=== PATIENT | female | born 1945 | race Caucasian/White ===

== ENCOUNTER → 2017-06-23 | Outpatient (CLI) | payer MEDICARE ==
[~2017-06-23] MED LIST: RALO60 PO
[2017-06-25 12:53] LABS: HPV Genotype 16 Not Detected (NOTDET); HPV Genotype 18 Not Detected (NOTDET)
[2017-07-06 10:35] LABS: HPV High Risk Other Not Detected (NOTDET)
== END | disposition home or self-care (01) ==
LOC: OLS 16:17
PROVIDERS: Obstetrics & Gynecology Gynecology
DX: Z91.89 Other specified personal risk factors, not elsewhere classified (principal)
CPT/HCPCS: 87624; G0123

== ENCOUNTER → 2017-07-22 | Outpatient (CLI) | payer MEDICARE | END | disposition home or self-care (01) | LOC: OLS 16:25 → LAB SHORT 16:25 | DX: L98.8 Other specified disorders of the skin and subcutaneous tissue (principal) | CPT/HCPCS: 87529 ==

== ENCOUNTER → 2018-07-14 | Outpatient (CLI) | payer MEDICARE | END | disposition home or self-care (01) | LOC: PLD 13:27 → LAB SHORT 13:27 | DX: L82.0 Inflamed seborrheic keratosis (principal) | CPT/HCPCS: 88305 ==

== ENCOUNTER → 2018-08-20 | Outpatient (CLI) | payer MEDICARE ==
[2018-08-25 15:06] LABS: HPV 16 Negative (Negative); HPV 18 Negative (Negative); HPV OTHER HR TYPES Negative (Negative)
== END | disposition home or self-care (01) ==
LOC: LAB SHORT 12:53 → LAB 12:53
PROVIDERS: Obstetrics & Gynecology Gynecology
DX: Z91.89 Other specified personal risk factors, not elsewhere classified (principal)
CPT/HCPCS: 87624; G0123

== ENCOUNTER → 2019-06-23 | Outpatient (CLI) | payer MEDICARE | END | disposition home or self-care (01) | LOC: PLD 11:45 → LAB SHORT 11:45 | DX: B35.1 Tinea unguium (principal); L60.2 Onychogryphosis | CPT/HCPCS: 88305; 88312 ==

== ENCOUNTER 2020-07-04 09:17 | Day surgery (SDC) | payer MEDICARE ==
[~2020-07-04] VITALS: Ht 162.6 cm; Wt 62.2 kg
[~2020-07-04 09:17] MED LIST changes: +ALEN70 PO
[2020-07-04] MEDS ORDERED: ACYC400 (10:02)
[2020-07-04] MEDS ORDERED: FISH OIL 1,2001 EAC7 (10:02)
== END 2020-07-04 11:15 | disposition home or self-care (01) ==
LOC: ORSCSDS 09:17
PROVIDERS: Internal Medicine Gastroenterology
PROC: 0DJ08ZZ Inspection of Upper Intestinal Tract, Via Natural or Artificial Opening Endoscopic (ICD-10-PCS; principal; 2020-07-04 10:45)
DX: R10.11 Right upper quadrant pain (principal); Z87.891 Personal history of nicotine dependence; Z79.899 Other long term (current) drug therapy
CPT/HCPCS: J2704; J7120

== ENCOUNTER → 2021-01-31 | Outpatient (CLI) | payer MEDICARE ==
[~2021-01-31] MED LIST changes: +ACYC400; +FISH OIL 1,2001 EAC7
== END | disposition home or self-care (01) ==
LOC: LAB SHORT 08:42
DX: D48.5 Neoplasm of uncertain behavior of skin (principal)
CPT/HCPCS: 88305

== ENCOUNTER 2021-06-19 08:18 | Day surgery (SDC) | payer MEDICARE ==
[~2021-06-19] VITALS: Ht 162.6 cm; Wt 61.5 kg
[~2021-06-19 08:18] MED LIST changes: +FISH OIL 1,2001 EAC1 PO; +GLUCOSAMINE-CH1 EAC7 PO; +IBUP200; +MOBIC15 MG PO; +MULTIPLE VITAM1 EACH PO; +Woman's Laxative5 MG
== END 2021-06-19 10:50 | disposition home or self-care (01) ==
LOC: ORSCSDS 08:18
PROVIDERS: Internal Medicine Gastroenterology
PROC: 0DJD8ZZ Inspection of Lower Intestinal Tract, Via Natural or Artificial Opening Endoscopic (ICD-10-PCS; principal; 2021-06-19 09:45)
DX: Z12.11 Encounter for screening for malignant neoplasm of colon (principal); Z86.010 Personal history of colon polyps; K57.30 Diverticulosis of large intestine without perforation or abscess without bleeding; Z87.891 Personal history of nicotine dependence; Z79.899 Other long term (current) drug therapy
CPT/HCPCS: J2704; J7120

== ENCOUNTER 2023-01-18 05:15 | Inpatient (IN) | payer MEDICARE ==
[~2023-01-18] VITALS: Ht 160 cm; Wt 63.2 kg
[~2023-01-18 05:15] MED LIST changes: +Prednisone10 MG PO
[2023-01-18 06:09] LABS: BASOPHILS ABSOLUTE AUTO 0.01 K/mm3 (0.00-0.23); BASOPHILS PERCENT AUTO 0 % (0-2); EOSINOPHILS PERCENT AUTO 0 % (0-6); Hematocrit 31.1 % (33.0-51.0); Hemoglobin 10.9 g/dL (11.5-16.0); IMMATURE GRAN ABSOLUTE AUTO 0.13 K/mm3 (0.00-0.10); IMMATURE GRAN PERCENT AUTO 2 % (0-1); LYMPHOCYTES ABSOLUTE AUTO 0.73 K/mm3 (0.84-5.20); LYMPHOCYTES PERCENT AUTO 11 % (21-46); MONOCYTES ABSOLUTE AUTO 0.84 K/mm3 (0.16-1.47); MONOCYTES PERCENT AUTO 13 % (4-13); Mean Corpuscular HGB 31.5 pg (26.0-34.0); Mean Corpuscular Volume 90 fL (80-100); Mean Platelet Volume 9.7 fL (9.1-12.4); NEUTROPHILS ABSOLUTE AUTO 4.68 K/mm3 (1.96-9.15); NEUTROPHILS PERCENT AUTO 73 % (41-73); Platelet Count 378 K/mm3 (150-400); RDW Coefficient Variation 12.7 % (11.7-14.2); RDW Standard Deviation 41.8 fL (35.1-46.3); Red Blood Cell Count 3.46 M/mm3 (3.80-5.20); White Blood Cell Count 6.39 K/mm3 (4.00-11.30)
[2023-01-18 06:32] LABS: Albumin, Blood 2.4 g/dL (3.4-5.0); Albumin/Globulin Ratio 0.6 (0.8-1.8); Bilirubin, Total 0.4 mg/dL (0.1-1.0); Bun/Creatinine Ratio 10.2 (12.0-20.0); Calcium, Blood 8.3 mg/dL (8.5-10.1); Creatinine, Blood 0.59 mg/dL (0.40-1.00); Globulin, Blood 4.1 g/dL (2.2-4.0); Potassium, Blood 2.7 mmol/L (3.5-5.5); Total Protein, Blood 6.5 g/dL (6.4-8.2)
[2023-01-18 10:45] VITALS: BP 126/86
[2023-01-18 12:52] VITALS: BP 114/58
--- NOTE | 2023-01-18 13:45 | NUR ---
PT ARRIVED THIS AM FROM ER, SHE WAS DIAGNOSED WITH COVID 5 DAYS AGO. SHE REPORTS THAT SHE HAS CONTINUED TO WORSEN, WITH INCREASED FATIGUE, SOB AND COUGH. SHE ARRIVED ON AIRVO 40L/60%, WHICH IS MAINTAINING HER SPO2 >93%. NO RETRACTIONS NOTED, SHE REPORTS SOB, BUT THERE IS NO RESPIRATORY DISTRESS OTHERWISE NOTED. VSS. DENIES PAIN. SHE DENIES ANY MEDICAL HX, STS THAT SHE ONLY TAKES SUPPLEMENTS. NO SKIN ISSUES NOTED, SKIN PWD AND INTACT. SHE AMBULATED TO BATHROOM IMMEDIATELY UPON ARRIVAL TO THE UNIT, NO SOB OR DIZZINESS REPORTED WITH AMBULATION. SHE IS SITTING UP IN BED EATING LUNCH TRAY. SHE DENIES IMPROVEMENT IN WORK OF BREATHING, BUT APPEARS TO BE DOING VERY WELL.
[2023-01-18 17:45] VITALS: BP 122/64
--- NOTE | 2023-01-18 18:51 | NUR ---
NO CHANGES SINCE LAST NOTE, RESTING WELL IN BED
[2023-01-19] VITALS (7 sets, daily range): BP systolic 111–133; BP diastolic 56–85
[2023-01-19 04:23] LABS: BASOPHILS ABSOLUTE AUTO 0.02 K/mm3 (0.00-0.23); BASOPHILS PERCENT AUTO 0 % (0-2); EOSINOPHILS PERCENT AUTO 0 % (0-6); Hemoglobin 10.6 g/dL (11.5-16.0); IMMATURE GRAN ABSOLUTE AUTO 0.21 K/mm3 (0.00-0.10); IMMATURE GRAN PERCENT AUTO 2 % (0-1); LYMPHOCYTES ABSOLUTE AUTO 0.76 K/mm3 (0.84-5.20); LYMPHOCYTES PERCENT AUTO 8 % (21-46); MONOCYTES ABSOLUTE AUTO 0.96 K/mm3 (0.16-1.47); MONOCYTES PERCENT AUTO 11 % (4-13); Mean Corpuscular HGB 31.7 pg (26.0-34.0); Mean Corpuscular HGB Conc 35.3 g/dL (31.5-36.5); Mean Corpuscular Volume 90 fL (80-100); Mean Platelet Volume 9.7 fL (9.1-12.4); NEUTROPHILS ABSOLUTE AUTO 7.09 K/mm3 (1.96-9.15); NEUTROPHILS PERCENT AUTO 79 % (41-73); Platelet Count 460 K/mm3 (150-400); RDW Standard Deviation 42.7 fL (35.1-46.3); Red Blood Cell Count 3.34 M/mm3 (3.80-5.20); White Blood Cell Count 9.04 K/mm3 (4.00-11.30)
[2023-01-19 04:44] LABS: Bun/Creatinine Ratio 17.7 (12.0-20.0); Calcium, Blood 8.4 mg/dL (8.5-10.1); Creatinine, Blood 0.57 mg/dL (0.40-1.00); Potassium, Blood 3.7 mmol/L (3.5-5.5)
--- NOTE | 2023-01-19 05:36 | NUR ---
SHIFT SUMMERY PT HAS HAD NO ACUTE CHANGES OVERNIGHT. SHE REMAINS ON AIRVO W/OXYGEN SAT 88-93%. SHE CONTINUES TO HAVE SOB W/ EXERTION TAKING 3-5 MINUTES TO RECOVER FROM THE 80S. SHE HAS HAD NO ACUTE DISTRESS THIS SHIFT.
--- NOTE | 2023-01-19 17:02 | NUR ---
SHIFT SUMMARY ALERT, ORIENTED, PLEASANT, COOPERATIVE, WEAK. TELE SR-SB. AIRVO 45L AT 70%. CONGESTED COUGH, NO SPUTUM. DESATURATION WITH EXERTION, REQUIRES A COUPLE MINUTES TO RECOVER. TOLERATING REGULAR DIET AND LIQUIDS. VOIDING WELL. SBA UP TO COMMODE. BEDBATH COMPLETED THIS SHIFT. CONTINUING ROUTINE STEROID AND ABX. SPOUSE VISITED DURING AM. PLAN FOR A FEW MORE DAYS FOR O2 REQUIREMENTS TO DECREASE.
[2023-01-20 04:23] VITALS: BP 114/74
[2023-01-20 05:02] LABS: BASOPHILS ABSOLUTE AUTO 0.03 K/mm3 (0.00-0.23); BASOPHILS PERCENT AUTO 0 % (0-2); EOSINOPHILS PERCENT AUTO 0 % (0-6); Hematocrit 32.3 % (33.0-51.0); Hemoglobin 11.3 g/dL (11.5-16.0); IMMATURE GRAN ABSOLUTE AUTO 0.47 K/mm3 (0.00-0.10); IMMATURE GRAN PERCENT AUTO 4 % (0-1); LYMPHOCYTES ABSOLUTE AUTO 0.75 K/mm3 (0.84-5.20); LYMPHOCYTES PERCENT AUTO 7 % (21-46); MONOCYTES ABSOLUTE AUTO 0.51 K/mm3 (0.16-1.47); MONOCYTES PERCENT AUTO 5 % (4-13); Mean Corpuscular HGB 31.5 pg (26.0-34.0); Mean Corpuscular Volume 90 fL (80-100); Mean Platelet Volume 9.6 fL (9.1-12.4); NEUTROPHILS ABSOLUTE AUTO 8.99 K/mm3 (1.96-9.15); NEUTROPHILS PERCENT AUTO 84 % (41-73); Platelet Count 548 K/mm3 (150-400); RDW Coefficient Variation 12.7 % (11.7-14.2); RDW Standard Deviation 42.2 fL (35.1-46.3); Red Blood Cell Count 3.59 M/mm3 (3.80-5.20); White Blood Cell Count 10.75 K/mm3 (4.00-11.30)
--- NOTE | 2023-01-20 05:23 | NUR ---
SHIFT SUMMARY A/Ox4 AND COOPERATIVE WITH CARE. ANSWERS QUESTIONS APPROPRIATELY AND ABLE TO MAKE HER NEEDS KNOWN. NO ACUTE EVENTS OVER NIGHT FOR PT WAS ABLE TO SLEEP T/O MOST OF THE SHIFT. CARDIAC, REMAINS IN SR 60-80's WITH NO COMPLAINTS OF CP OR PRESSURE. SBP HAS BEEN STABLE RANGING 110-130's. RESPIRATORY, MAINTAIN SPO2 >90% ON AIRVO 45L W/70% FiO2. QUICKLY DESTAT S WITH EXERTION AND NORMALLY TAKES 1-2 MINUTES TO RECOVER. CONTINUES TO HAVE INTERMITTENT HACKING COUGH, BUT HAS BEEN NON-PRODUCTIVE SO FAR THIS SHIFT. GI/, ABLE TO STAND PIVOT TO BS TO VOID STRAW COLORED URINE. ONE BM THIS SHIFT, WITH SOFT/BROWN/SMALL BM. CONTINUES TO REPORT GENERAL WEAKNESS AND HAS HAD POOR PO INTAKE PER DAY SHIFT REPORT. ASSESSED PT FOR RISKS OF ANY IGNITION SOURCES WELL BEHAVIORS FOR INCREASED RISKS OF FIRE DANGER. PT EDUCATED ON COMMON SOURCES OF IGNITION WELL NEED TO KEEP A SAFE ENVIRONMENT. PT VOICED UNDERSTANDING. NO NEW ORDERS AT THIS TIME, WILL REPORT TO ONCOMING RN. GREG GARCIA OF THIS NOTE.
[2023-01-20 06:03] LABS: Phosphorus, Blood 4.4 mg/dL (2.5-4.9)
[2023-01-20 09:47] VITALS: BP 128/67
--- NOTE | 2023-01-20 10:00 | NUR ---
THIS RN ENTERED ROOM AT 0940, RT WAS AT BEDSIDE, IT WAS BROUGHT TO MY ATTENTION THAT PATIENT HAD REMOVED HER AIRVO AND HAS DESATURATED INTO THE 70s, I WAS NOT MADE AWARE OF LOW SPO2. THE PATIENT IS LYING RECUMBENENT IN BED, NO RETRACTIONS NOTED, NO INCREASED WORK OF BREATHING, SHE IS TALKING IN FULL SENTENCES. VSS. THE PATIENT WAS ABLE TO MAKE NEEDS AND CONCERNS KNOWN, SHE IS VERY CONCERNED ABOUT WHEN ROOM WILL BE TIDIED THIS MORNING, AND WHEN SHE WILL GET A BED BATH. SPOUSE IS CONCERNED ABOUT OBSERVATION AT THAT PATIENT IS NOT BEING PROPERLY CARED FOR. PCT WAS AT BEDSIDE WHEN LOW SPO2 OCCURED, AND RT ARRIVED TO ROOM SHORTLY AFTER, PCT REMAINED AT BEDSIDE UNTIL RT ARRIVED, THIS RN WAS NOT NOTIFIED OF THE LOW SPO2 UNTIL I ENTERED THE ROOM. PER RT AND PCT, PT REMOVED HER AIRVO AND WAS PLACED ON HIGH FLOW O2 UNTIL RT ARRIVED TO THE ROOM, SHE RECOVERED WELL WITHOUT FUTHER INCIDENT.
[2023-01-20 12:30] VITALS: BP 105/58
--- NOTE | 2023-01-20 13:53 | NUR ---
PT HAS BEEN RESTING WELL IN BED. SHE IS TOLERATING AIRVO WELL AT THIS TIME.
[2023-01-20 15:42] VITALS: BP 120/68
--- NOTE | 2023-01-20 17:47 | NUR ---
PT WAS UPDATED ABOUT REPEAT CHEST XRAY WHICH SEEMS TO IMPROVE HER MOOD, SHE HAS BEEN FLAT T/O THE DAY. VSS. OXYGEN NEEDS HAVE REMAINED GROSSLY UNCHANGED DURING THIS SHIFT. TEEN. RT WAS IN ROOM AND ALSO REPORTS THAT PT APPEARS TO HAVE A MORE ELEVATED MOOD SINCE LEARNING ABOUT HER CHEST XRAY. SHE HAS BEEN RESTING WELL IN BED T/O THE DAY.
[2023-01-20 20:51] VITALS: BP 118/61
[2023-01-20 23:57] VITALS: BP 122/59
[2023-01-21 04:23] VITALS: BP 108/69
--- NOTE | 2023-01-21 05:25 | NUR ---
SHIFT SUMMARY A/Ox4 AND COOPERATIVE WITH CARE. ANSWERS QUESTIONS APPROPRIATELY AND ABLE TO MAKE HER NEEDS KNOWN. CONTINUES TO PRESENT WITH FLAT AFFECT HOWEVER. NO ACUTE EVENTS OVER NIGHT FOR PT WAS ABLE TO SLEEP T/O MOST OF THE SHIFT. CARDIAC, REMAINS IN SR 60-80's WITH NO COMPLAINTS OF CP OR PRESSURE. SBP HAS BEEN STABLE RANGING 100-120's. RESPIRATORY, CONTINUES TO MAINTAIN SPO2 >90% ON AIRVO 45L W/70% FiO2. STILL DESTAT's WITH EXERTION, BUT ABILITY TO RECOVER WHEN AT REST IMPROVED. CONTINUES TO HAVE INTERMITTENT HACKING COUGH WITH NO PRODUCTION NOTED FOR SPUTUM SAMPLE. GI/, ABLE TO STAND PIVOT TO [facility] [place] TO VOID STRAW COLORED URINE. NO BM THIS SHIFT, BUT PT S STRENGTH WHEN AMBULATING HAS BEEN NOTED TO HAVE SLIGHTLY IMPROVED. CONTINUES TO REPORT GENERAL WEAKNESS, AGREES TO ATTEMPT TO IMPROVED PO INTAKE FOR BREAKFAST THIS AM. ASSESSED PT FOR RISKS OF ANY IGNITION SOURCES WELL BEHAVIORS FOR INCREASED RISKS OF FIRE DANGER. PT EDUCATED ON COMMON SOURCES OF IGNITION WELL NEED TO KEEP A SAFE ENVIRONMENT. PT VOICED UNDERSTANDING. NO NEW ORDERS AT THIS TIME, WILL REPORT TO ONCOMING RN. GREG GARCIA OF THIS NOTE.
[2023-01-21 07:41] VITALS: BP 118/70
[2023-01-21 11:36] VITALS: BP 105/53
[2023-01-21 17:21] VITALS: BP 113/62
--- NOTE | 2023-01-21 17:49 | NUR ---
SHIFT SUMMARY NO ACUTE CHANGES THIS SHIFT. PT A&OX4, FLAT AFFECT. SP02>90% ON AIRVO 40L 50% FI02. SHALLOW BREATHING. PT NOT WANTING TO USE FLUTTER VALVE/INCENTIVE SPIROMETER. EDUCATED PT ON IMPORTANCE OF DEVICES. TELEMETRY SHOWS NSR W/ PVCS, HR 60'S-70'S. UP TO BSC TO VOID. UP TO CHAIR FOR BREAKFAST, SBA. PT ABLE TO WORK W/ OT AND PT TODAY. REFUSED BED BATH. IN ROOM FOR PART OF SHIFT. CALL LIGHT IN REACH. PT RESTING IN BED EATING DINNER.
[2023-01-21 20:06] VITALS: BP 106/63
[2023-01-21 23:15] VITALS: BP 110/55
[2023-01-22 03:57] VITALS: BP 107/66
[2023-01-22 04:49] LABS: BASOPHILS ABSOLUTE AUTO 0.03 K/mm3 (0.00-0.23); BASOPHILS PERCENT AUTO 0 % (0-2); EOSINOPHILS PERCENT AUTO 0 % (0-6); Hemoglobin 11.7 g/dL (11.5-16.0); IMMATURE GRAN ABSOLUTE AUTO 0.63 K/mm3 (0.00-0.10); IMMATURE GRAN PERCENT AUTO 4 % (0-1); LYMPHOCYTES PERCENT AUTO 10 % (21-46); MONOCYTES ABSOLUTE AUTO 0.74 K/mm3 (0.16-1.47); MONOCYTES PERCENT AUTO 5 % (4-13); Mean Corpuscular HGB 31.1 pg (26.0-34.0); Mean Corpuscular HGB Conc 34.4 g/dL (31.5-36.5); Mean Corpuscular Volume 90 fL (80-100); Mean Platelet Volume 9.9 fL (9.1-12.4); NEUTROPHILS ABSOLUTE AUTO 11.95 K/mm3 (1.96-9.15); NEUTROPHILS PERCENT AUTO 81 % (41-73); Platelet Count 669 K/mm3 (150-400); RDW Coefficient Variation 12.6 % (11.7-14.2); RDW Standard Deviation 41.5 fL (35.1-46.3); Red Blood Cell Count 3.76 M/mm3 (3.80-5.20); White Blood Cell Count 14.75 K/mm3 (4.00-11.30)
[2023-01-22 05:01] LABS: Magnesium, Blood 2.2 mg/dL (1.6-2.4)
[2023-01-22 05:02] LABS: Albumin, Blood 2.3 g/dL (3.4-5.0); Anion Gap 6 mmol/L (6-16); Blood Urea Nitrogen 20 mg/dL (8-24); Bun/Creatinine Ratio 35.4 (12.0-20.0); CO2, Blood 28 mmol/L (21-32); Calcium, Blood 8.6 mg/dL (8.5-10.1); Chloride, Blood 102 mmol/L (98-108); Creatinine, Blood 0.57 mg/dL (0.40-1.00); Glomerular Filtration Rate 92 (60-); Glucose, Blood 99 mg/dL (70-99); Phosphorus, Blood 3.8 mg/dL (2.5-4.9); Sodium, Blood 136 mmol/L (136-145)
--- NOTE | 2023-01-22 05:16 | NUR ---
SHIFT SUMMARY A&Ox4, CALLS AND COMMUNICATES NEEDS APPROPRIATELY. PT FLAT AND WITHDRAWN AT TIMES, REFUSING FLUTTER VALVE. BP STABLE, SINUS w/ PACs 60-80's, DENIES CP/PRESSURE. SpO2> 92% 40L/55% FiO2 VIA AIRVO, REPORTS SOB WITH ACTIVITY. CONTINENT OF URINE, 1 ASSIST TO BSC. NO OTHER EVENTS, WILL REPORT TO ONCOMING RN.
[2023-01-22 07:45] VITALS: BP 103/56
[2023-01-22 11:20] VITALS: BP 101/49
[2023-01-22 17:40] VITALS: BP 97/53
--- NOTE | 2023-01-22 18:00 | NUR ---
SHIFT SUMMARY PT A&OX4. SP02>90%, TITRATED TO 7L HHF THIS SHIFT. PT CONTINUES W/ A CONGESTED NON PRODUCTIVE COUGH. FLUTTER VALVE AND IS CONTINUOUSLY ENCOURAGED. TELEMETRY SHOWS NSR W/ PVCS, HR 60'S80'S. UP IN CHAIR FOR BREAKFAST. ABLE TO WORK W/ PT THIS SHIFT. ABX INFUSED PER EMAR. CALL LIGHT IN REACH.
[2023-01-22 20:02] VITALS: BP 94/53
[2023-01-22 23:13] VITALS: BP 95/59
[2023-01-23 03:17] VITALS: BP 102/57
--- NOTE | 2023-01-23 04:31 | NUR ---
SHIFT SUMMARY A&Ox4, CALLS AND COMMUNICATES NEEDS APPROPRIATELY. PT FLAT AND WITHDRAWN AT TIMES, REFUSING FLUTTER VALVE. BP STABLE, SINUS w/ PACs 60-80's, DENIES CP/PRESSURE. SpO2> 92% 7-9L VIA HI-FLOW NC, REPORTS SOB WITH ACTIVITY. CONTINENT OF URINE, 1 ASSIST TO BSC. NO OTHER EVENTS, WILL REPORT TO ONCOMING RN.
[2023-01-23 11:39] VITALS: BP 97/54
--- NOTE | 2023-01-23 15:13 | NUR ---
TRANSFER NOTE ALERT, ORIENTED, PLEASANT, COOPERATIVE. NSR ON TELE. 9L 02 VIA F NC. DENIES SOB WITH EXERTION, NO DESATURATIONS. SBP SOFT BUT STABLE, PATIENT ASYMPTOMATIC. PARTICIPATING SOMEWHAT WITH PHYSICAL THERAPY. OCC DECLINES TO GET UP. DID TOLERATE GETTING UP TO RECLINER FOR LUNCH. VOIDING WELL. ORDERS PLACED TO DISCONTINUE TELEMETRY AND MEDICAL STATUS. REPORT CALLED TO MEDICAL FLOOR ALPHONSO FERGUSON RN. PATENT LEFT UNIT AT 1510 VIA WHEELCHAIR FOR HOME 350.
[2023-01-23 15:20] VITALS: BP 101/60
--- NOTE | 2023-01-23 16:19 | NUR ---
NOTES: PATIENT ARRIVES TO ROOM AT AROUND 1510 FROM PCU RM 18 VIA WHEELCHAIR. ASSUME CARE OF PATIENT. PATIENT IS A/OX4, ANSWER TO QUESTIONS APPROPRIATELY AND ABLE TO MAKE NEEDS KNOWN. PATIENT WAS ON 7L, HEATED HUMIDIFIED HI-FLOW VIA NC c SPO2 RANGES 96-98%. O2 WAS TITRATED TO 6L c SPO2 RANGES 93-95%. LUNGS STILL COARSE AND DIM T/O TO AUSCULTATION. PATIENT ON ENHANCED ISOLATION FOR COVID POSITIVE. POWERGLIDE TO EVELYNE SALINE LOCKED. CALL LIGHT IN REACH.
[2023-01-23 19:26] VITALS: BP 116/56
--- NOTE | 2023-01-24 04:01 | NUR ---
SHIFT SUMMARY AMANDEEP WAS ALERT AND FULLY ORIENTED AT THE START OF SHIFT. SHE HAS BEEN PLEASANT AND COOPERATIVE. PT IS STILL ON 6L O2, WHICH IS MAINTAINING HER SP02 AROUND 91-93% SHE DENIES DYSPNEA / SOB. PT IS CONTINENT TO BATHROOM WITH 1 STANDBY ASSIST. NO ACUTE EVENTS TONIGHT. PT IS RESTING IN BED IN A LOW POSITION WITH THE CALL LIGHT IN REACH WHICH SHE USES APPROPRIATELY. COUGH IS STILL CONSISTENT, RELIEVED BY TESSALON SKYLER.
[2023-01-24 04:47] VITALS: BP 100/82
[2023-01-24 05:25] LABS: BASOPHILS ABSOLUTE AUTO 0.04 K/mm3 (0.00-0.23); BASOPHILS PERCENT AUTO 0 % (0-2); EOSINOPHILS ABSOLUTE AUTO 0.02 K/mm3 (0.00-0.68); EOSINOPHILS PERCENT AUTO 0 % (0-6); Hematocrit 35.3 % (33.0-51.0); Hemoglobin 12.2 g/dL (11.5-16.0); IMMATURE GRAN ABSOLUTE AUTO 0.37 K/mm3 (0.00-0.10); IMMATURE GRAN PERCENT AUTO 2 % (0-1); LYMPHOCYTES ABSOLUTE AUTO 1.13 K/mm3 (0.84-5.20); LYMPHOCYTES PERCENT AUTO 7 % (21-46); MONOCYTES ABSOLUTE AUTO 0.74 K/mm3 (0.16-1.47); MONOCYTES PERCENT AUTO 5 % (4-13); Mean Corpuscular HGB 31.4 pg (26.0-34.0); Mean Corpuscular HGB Conc 34.6 g/dL (31.5-36.5); Mean Corpuscular Volume 91 fL (80-100); Mean Platelet Volume 10.2 fL (9.1-12.4); NEUTROPHILS ABSOLUTE AUTO 13.39 K/mm3 (1.96-9.15); NEUTROPHILS PERCENT AUTO 85 % (41-73); Platelet Count 686 K/mm3 (150-400); RDW Coefficient Variation 12.5 % (11.7-14.2); RDW Standard Deviation 41.6 fL (35.1-46.3); Red Blood Cell Count 3.89 M/mm3 (3.80-5.20); White Blood Cell Count 15.69 K/mm3 (4.00-11.30)
[2023-01-24 06:28] LABS: Albumin, Blood 2.4 g/dL (3.4-5.0); Anion Gap 7 mmol/L (6-16); Blood Urea Nitrogen 22 mg/dL (8-24); Bun/Creatinine Ratio 35.1 (12.0-20.0); CO2, Blood 24 mmol/L (21-32); Calcium, Blood 8.5 mg/dL (8.5-10.1); Chloride, Blood 104 mmol/L (98-108); Creatinine, Blood 0.63 mg/dL (0.40-1.00); Glomerular Filtration Rate 90 (60-); Glucose, Blood 106 mg/dL (70-99); Phosphorus, Blood 2.8 mg/dL (2.5-4.9); Sodium, Blood 135 mmol/L (136-145)
[2023-01-24 07:25] VITALS: BP 99/61
[2023-01-24 14:32] VITALS: BP 106/61
[2023-01-24] MEDS ORDERED: AMOCLA875 PO (16:33)
[2023-01-24] MEDS ORDERED: Acetaminophen650 M1 PO (16:33)
[2023-01-24] MEDS ORDERED: PRED20 PO (16:33)
[2023-01-24] MEDS ORDERED: BENZ100A PO (16:34)
[2023-01-24] MEDS ORDERED: POTA20LUD PO (16:35)
[2023-01-24] MEDS ORDERED: ONDA4 PO (16:35)
[2023-01-24] MEDS ORDERED: VISBIOME 112.51 EACH PO (16:36)
[2023-01-24] MEDS ORDERED: PHOS-NAK PO (16:36)
[2023-01-24] MEDS ORDERED: SODCHL1 PO (16:37)
--- NOTE | 2023-01-24 17:00 | NUR ---
SHIFT/DISCHARGE SUMMARY: PATIENT IS A/OX4. CALM, PLEASANT AND COOPERATIVE c CARE. USES CALL LIGHT APPROPRIATELY AND ABLE TO MAKE NEEDS KNOWN. PATIENT DENIES CP/PRESSURE, SOB, N/V AND DIZZINESS. PATIENT WAS ON 6L OF O2 VIA NC c SPO2 RANGES 96-98% AT BEGINING OF SHIFT. O2 HAS BEEN TITRATED T/O THE DAY, MONITORED AND HAS BEEN MAINTAINING ABOVE 92%. REPORTS TO DR. MCCLURE REGARDING PATIENT O2 PROGRESS, RECEIVED ORDER FROM DR. MCCLURE AROUND 1400 TO PLACED FOR HOME O2 EVAL. RT DID HOME O2 EVAL AT AROUND 1500, PER RT PATIENT DID NOT REPORT DYSPNEA. PATIENT O2 ON RA AT REST WAS 92%, c AMBULATION IN ROOM 100%. REPORT TO DR. MCCLURE REGARDING THIS FINDINGS. DR. MCCLURE SPOKE TO PATIENT AND PATIENT REQUESTING TO GO HOME AND DOES NOT WANT TO STAY ONE MORE NIGHT IN THE HOSPITAL. PATIENT RECEIVED PO SCHEDULED MEDS PER EMAR. VITAL SIGNS REVIEWED. POWERGLIDE TO EVELYNE REINOSO[employer]. PATIENT DISCHARGE HOME. DISCHARGE INSTRUCTIONS PACKET GIVEN TO PATIENT. EDUCATE PATIENT REGARDING ADMITTING DX'S OF ACUTE HYPOXEMIC RESP FAILURE D/T COVID POSITIVE, S/S, SELF CARE AT HOME, DISCHARGE NEW MEDS TO HOME AND TO FOLLOW UP c PCP. PATIENT VERBALIZED UNDERSTANDING AND NO FURTHER QUESTIONS. RX WAS FAXED TO PATIENT PREFERRED PHARMACY ([facility]). ALL PATIENT PERSONAL BELONGINGS WERE SENT HOME c THE PATIENT. PATIENT LEFT THE ROOM AT AROUND 1657 AND WAS TRANSPORTED VIA WHEELCHAIR TO PATIENT ENTRANCE.
== END 2023-01-24 17:01 | disposition home or self-care (01) | DRG 177 ==
LOC: ER 05:15 → PCU 07:32 → MEDS 07:32 → PCU 07:32 → MEDS 01-23 15:15 → ENPENDDIS 01-24 16:29 → MEDS 01-24 17:01
PROVIDERS: Emergency Medicine; Family Medicine; ADMIT Internal Medicine
PROC: 5A0955A Assistance with Respiratory Ventilation, Greater than 96 Consecutive Hours, High Flow/Velocity Cannula (ICD-10-PCS; principal; 2023-01-18)
PROC: 3E0333Z Introduction of Anti-inflammatory into Peripheral Vein, Percutaneous Approach (ICD-10-PCS; 2023-01-18)
DX: U07.1 COVID-19 (principal); J12.82 Pneumonia due to coronavirus disease 2019; J18.9 Pneumonia, unspecified organism; J96.01 Acute respiratory failure with hypoxia; E87.6 Hypokalemia; E78.5 Hyperlipidemia, unspecified; M85.80 Other specified disorders of bone density and structure, unspecified site; M48.061 Spinal stenosis, lumbar region without neurogenic claudication; Z79.52 Long term (current) use of systemic steroids; Z88.8 Allergy status to other drugs, medicaments and biological substances; Z90.49 Acquired absence of other specified parts of digestive tract; Z87.891 Personal history of nicotine dependence
CPT/HCPCS: 36415; 71045; 80048; 80053; 80069; 83735; 83880; 84100; 84145; 84484; 85025; 85651; 86140; 87040; 93005; 93010; 94664; 94761; 94762; 96365; 96366; 96368; 96375; 97110; 97162; 97166; 97530; 97535; 99285-25; A9270; J0456; J0696; J1100; J1650; J3475; J3480; J7030; J7050